=== PATIENT | female | born 1990 | race Two or more races ===

== ENCOUNTER 2024-07-31 18:54 | Emergency (ER) | payer MEDICAID, SELFPAY ==
[2024-07-31 19:37] VITALS: BP 118/76; PULSE 85; RESP 20; TEMP 36.9; O2SAT 98
--- NOTE | 2024-07-31 19:42 | PD.EDABDPN ---
ED Abdominal Pain RME/HPI General Chief Complaint: Abdominal Pain Stated complaint: ABD PAIN, CHEST PAIN, NAUSEA, DIZZINESS Time seen by provider: 07/31/24 19:36 Arrival date/time: 07/31/24 18:54 RME / HPI RME / HPI narrative: This section includes all my notes and documentations, including HPI, PE, and ED course. Uriel Mullins MD HPI: 34 y/o female presents with hot, burning epigastric abdominal pain, nausea x approximately 12 hours. Burning sensation moves up into her chest. Denies vomiting. No other complaints. ROS: All negative except as documented in HPI. Physical Exam: General: Alert and oriented. In obvious pain. Eyes: Conjunctivae and lids clear. ENT: No nasal congestion. Neck: Supple. Heart: RRR. Lungs: No respiratory distress. Good air movement. No rhonchi, wheezing, rales. Abdomen: Soft with moderate epigastric tenderness. Normal bowel sounds. No distension. No rebound or guarding. Back: No CVA tenderness. Skin: Warm and dry. Neuro: Alert and oriented X 3. I reviewed all diagnostic test results: My review of the US report is: NAD. Blood tests unremarkable. At this point, diagnoses include: Stomach ulcer Treatment here included: Pepcid, IV fluid, Toradol, Morphine, Zofran, Protonix. Significant improvement noted. Recommended more outpatient workup. Based on my best medical judgment, made decision no further evaluation or treatment indicated at this time. Patient understands and agrees to the discharge instructions customized and printed, see below. Discharge instructions from Dr. Mullins: ?After evaluation, your symptoms are due to stomach ulcer (see attached handout).? ?To help heal the ulcer, take Omeprazole 40 mg every morning and Famotidine 40 mg at bedtime for a week then as needed. ?Zofran for nausea/vomiting.? Clear liquid diet for 24 hours.? Then slowly advance diet as tolerated. ?Avoid food and beverages that can trigger and worsen ulcers.? See attached handout. --Tylenol with codeine for severe pain. ?See a private doctor on 08/02/2024 for recheck and further care. To make sure there is no serious intra-abdominal condition, ask for help with more investigation not available here in the ER.? Such as EGD or scoping the stomach, colonoscopy or scoping the colon, and referral to see bilingual legal assistant. Ask to review all test results and official radiology reports, to make sure you receive all necessary follow-ups and monitoring. ?Seek immediate medical care with worsening or with any concerns. Uriel Mullins MD Related Data Home Medications ?Medication ?Instructions ?Recorded ?Confirmed vit no.95-ferrous 1 tab PO DAILY 07/24/22 07/24/22 fumarate 28 mg-folic acid 800 mcg tablet () Previous Rx's ?Medication ?Instructions ?Recorded acetaminophen 300 mg-codeine 30 mg 2 tab PO Q8H PRN pain #20 tabs 07/31/24 tablet famotidine 40 mg tablet 40 mg PO .bedtime #30 tabs 07/31/24 omeprazole 40 mg capsule,delayed 40 mg PO QDAY #30 caps 07/31/24 release ondansetron 4 mg disintegrating 4 mg PO TID PRN nausea and 07/31/24 tablet vomiting 30 days #10 tabs Allergies Allergy/AdvReac Type Severity Reaction Status Date / Time mushroom Allergy Severe Swelling Verified 07/24/22 03:03 of Lip/Tongue/Throat Review of Systems Review of Systems Systems Reviewed: All systems reviewed, normal except as documented Past Medical History Past Medical History REPRODUCTIVE: Positive Previous Pregnancies MUSCULOSKELETAL: Positive Musculoskeletal Disorders HEMATOLOGIC: Positive Blood Disorders and Anemia (ectopic ) OTHER HISTORY: Positive Blood Transfusions Family History FAMILY HISTORY: Positive Family Cardiac Disorders ED Exam Narrative Physical exam: Refer to HPI above Course Quality Measures none Orders Category Date Time Status Saline [Insert IV] NOW Care 07/31/24 19:42 Completed US gall bladder Stat Exams 07/31/24 19:43 Completed Amylase Stat Lab 07/31/24 19:50 Results Bilirubin,Direct Stat Lab 07/31/24 19:50 Results CBC Stat Lab 07/31/24 19:50 Completed CMP [Comprehensive Metabolic Panel] Stat Lab 07/31/24 19:50 Results HCG,Qualitative Serum Stat Lab 07/31/24 19:50 Results Lipase Stat Lab 07/31/24 19:50 Results Magnesium Stat Lab 07/31/24 19:50 Results Famotidine Inj [Pepcid Inj] Med 07/31/24 19:43 Discontinued 20 mg IVP X1 ONE Ketorolac Inj [Toradol Inj] Med 07/31/24 19:42 Discontinued 30 mg IVP X1 ONE Morphine Inj Med 07/31/24 19:42 Discontinued 4 mg IVP X1 ONE Ondansetron Inj [Zofran Inj] Med 07/31/24 19:42 Discontinued 4 mg IVP X1 ONE Pantoprazole Inj [Protonix Inj] Med 07/31/24 19:43 Discontinued 40 mg IVP X1 ONE Sodium Chloride 0.9% 1000 ml [Ns] 1,000 ml Med 07/31/24 19:42 Discontinued IV 999 mls/hr Vital Signs Vital signs: Vital Signs Temperature 98.4 F 07/31/24 19:37 Pulse Rate 85 07/31/24 19:37 Respiratory Rate 20 07/31/24 19:37 Blood Pressure 118/76 07/31/24 19:37 Pulse Oximetry (%) 98 07/31/24 19:37 Oxygen Delivery Method Room Air 07/31/24 19:37 Abdominal Pain MDM MDM Narrative MDM Narrative:: Scribe Attestation: IAnnel, am scribing for and in the presence of Dr. Mullins. Provider Notation: Although this document has been carefully reviewed, there may still be some phonetic and other typographical errors.? These errors are purely grammatical due to imperfections in the software program and should not be construed in any way to? compromise the substance of the patient's medical care during this visit. 34 y/o female presents with hot, burning epigastric abdominal pain, nausea,l headache, and dizziness x approximately 12 hours. Burning sensation moves up her chest. Denies vomiting. Last oral intake was a PB&J for dinner. Patient experienced similar symptoms when she had appendicitis in 2021. No other complaints. Patient data External records reviewed:: [facility] previous records (Reviewed prior ED records from 09/22/21. Patient was seen for Near syncope.) Clinical information provided by:: patient Social determinants that could affect healthcare access:: none Patient has the following chronic illnesses:: None reported How is presenting disease/condition affected by chronic disease/condition?: no chronic disease Evaluation data The following diagnostics were reviewed and interpreted by me:: lab results and radiology exam(s) Lab and/or radiology exams considered but not ordered:: None Interpretation Summary: I reviewed all diagnostic test results: My review of the US report is: NAD. Blood tests unremarkable. Medications / Prescriptions Medications or Prescriptions considered but not ordered:: None Medication administrations:: Medication Administration History Discontinued Medications Famotidine (Famotidine Inj 10 Mg/Ml Vial 2 Ml) 20 mg IVP X1 ONE Stop: 07/31/24 19:44 Last Admin: 07/31/24 20:26 Dose: 20 mg Documented By: EF Sodium Chloride (Ns) 1,000 mls @ 999 mls/hr IV .Q1H1M ONE Stop: 07/31/24 20:42 Last Infusion: 07/31/24 21:03 Dose: Infused Documented By: Admin: 07/31/24 20:25 Dose: 999 mls/hr Documented By: EF Ketorolac Tromethamine (Ketorolac Inj 30 Mg/Ml Vial) 30 mg IVP X1 ONE Stop: 07/31/24 19:43 Morphine Sulfate (Morphine Sulf Inj 10 Mg/Ml Vial) 4 mg IVP X1 ONE Stop: 07/31/24 19:43 Last Admin: 07/31/24 20:26 Dose: 4 mg Documented By: EF Ondansetron HCl (Ondansetron Inj 2 Mg/Ml Inj 2 Ml) 4 mg IVP X1 ONE; Protocol Stop: 07/31/24 19:43 Last Admin: 07/31/24 20:26 Dose: 4 mg Documented By: EF Pantoprazole Sodium (Pantoprazole Inj 40 Mg Vial) 40 mg IVP X1 ONE Stop: 07/31/24 19:44 Last Admin: 07/31/24 20:26 Dose: 40 mg Documented By: EF Pepcid, IV fluid, Toradol, Morphine, Zofran, Protonix Consultations Consultation(s) initiated? (list below): No Diagnosis Differential diagnosis abdominal pain: abdominal pain, calculus of kidney, constipation, diverticulitis, pancreatitis, small bowel obstruction and other (GERD, Gastritis, PUD, biliary colic) Most likely diagnosis given after review of the tests above:: Stomach ulcer Admission Indicated Admission indicated?: not indicated Explain why admission is indicated or not indicated:: With significant improvement, there was no indication for admission. Admission Request Was there a request for admission?: No Disposition Plan Disposition Plan: Discharge Discharge Attestation Discharge Attestation: The patient and all family members were given an opportunity to ask questions and understood the discharge instructions. Discharge instructions specifically effects, indications for sooner follow up or return to the emergency department, and the expected course of current diagnosis. Patient condition: Stable Discharge Plan Plan Patient Disposition: HOME (Self Care) Prescriptions/Referrals Prescriptions/Med Rec: New famotidine 40 mg tablet 40 mg PO .bedtime Qty: 30 0RF acetaminophen-codeine 300-30 mg tablet 2 tab PO Q8H MDD 6 PRN (Reason: pain) Qty: 20 0RF omeprazole 40 mg capsule,delayed release(DR/EC) 40 mg PO QDAY Qty: 30 0RF ondansetron 4 mg tablet,disintegrating 4 mg PO TID PRN (Reason: nausea and vomiting) 30 Days Qty: 10 0RF No Action PNV cmb#95-ferrous fumarate-FA [] 28 mg iron- 800 mcg tablet 1 tab PO DAILY Patient Comments: TAKE 1 TABLET BY MOUTH EVERY DAY Referrals: Sai Sandoval MD [Primary Care Provider] - In 1 week Problem List Clinical Impression: Stomach ulcer Patient/Caregiver Discharge Instructions Discharge Activity: activity as tolerated Education Materials: ED PEPTIC ULCER vs GASTRITIS Additional Instructions: Discharge instructions from Dr. Mullins: ?After evaluation, your symptoms are due to stomach ulcer (see attached handout).? ?To help heal the ulcer, take Omeprazole 40 mg every morning and Famotidine 40 mg at bedtime for a week then as needed. ?Zofran for nausea/vomiting.? Clear liquid diet for 24 hours.? Then slowly advance diet as tolerated. ?Avoid food and beverages that can trigger and worsen ulcers.? See attached handout. --Tylenol with codeine for severe pain. ?See a private doctor on 08/02/2024 for recheck and further care. To make sure there is no serious intra-abdominal condition, ask for help with more investigation not available here in the ER.? Such as EGD or scoping the stomach, colonoscopy or scoping the colon, and referral to see bilingual legal assistant. Ask to review all test results and official radiology reports, to make sure you receive all necessary follow-ups and monitoring. ?Seek immediate medical care with worsening or with any concerns. Print Language: American Stand Alone Forms: Lisa Award Info., Patient Portal Info Letter
--- NOTE | 2024-07-31 19:43 | XR_ITS ---
Examination: Abdomen sonogram, Limited Date and time of exam: July hours INDICATIONS: Onset of abdominal pain beginning this morning Technique: Real-time sanabria scale transabdominal sonographic images of the upper abdomen obtained. Findings: Normal gallbladder. Normal common bile duct. Pancreatic head 2.5 cm. Liver 15.5 cm fatty infiltration no focal liver lesions Normal hepatopedal portal venous flow Patent IVC IMPRESSION: Normal gallbladder. Fatty liver
[2024-07-31 20:00] LABS: Basophils % (Auto) 0 % (0-2.5); Eosinophils # (Auto) 0.1 Thou/mm3 (0.0-0.5); Eosinophils % (Auto) 2 % (0-10); Hematocrit 36.3 % (36.0-46.0); Hemoglobin 12.6 g/dL (12.0-16.0); Immature Granulocytes % (Auto) 0 % (0-0); Immature Granulocytes Auto 0.01 Thou/mm3 (0.00-0.00); Lymphocytes # (Auto) 0.9 Thou/mm3 (1.0-4.8); Lymphocytes % (Auto) 17 % (10-50); Mean Corpuscular HGB Conc 34.7 g/dl (31.0-37.0); Mean Corpuscular Hemoglobin 26.1 pg (25.0-35.0); Mean Corpuscular Volume 75 fL (80-100); Monocytes # (Auto) 0.3 Thou/mm3 (0.0-0.8); Monocytes % (Auto) 6 % (0-12); Neutrophils % (Auto) 75 % (37-80); Nucleated Red Blood Cell % 0 /100 WBC (0); Platelet Count 248 Thou/mm3 (140-440); RDW Standard Deviation 39.7 fL (36.4-46.3); Red Blood Count 4.83 Miln/mm3 (4.00-5.20); White Blood Count 5.3 Thou/mm3 (3.6-11.0)
[2024-07-31] MEDS: SODIUM CHLORIDE 0.9% 1000 ML 1,000 ML 999 ML IV (20:25)
[2024-07-31] MEDS: MORPHINE SULF INJ 10 MG/ML VIAL 4 MG IVP (20:26)
[2024-07-31] MEDS: PANTOPRAZOLE INJ 40 MG VIAL IVP (20:26)
[2024-07-31] MEDS: FAMOTIDINE INJ 10 MG/ML VIAL 2 ML 20 MG IVP (20:26)
[2024-07-31] MEDS: ONDANSETRON INJ 2 MG/ML INJ 2 ML 4 MG IVP (20:26)
[2024-07-31 20:27] LABS: HCG,Qualitative Serum Negative
[2024-07-31 20:30] LABS: Alanine Aminotransferase 17 U/L (10-49); Albumin, Serum 4.9 gm/dL (3.5-5.0); Alkaline Phosphatase 56 U/L (46-116); Anion Gap 11 (7-16); BUN/Creatinine Ratio 10 Ratio (12-20); Bilirubin,Direct 0.2 mg/dL (0.0-0.3); Bilirubin,Total 0.6 mg/dL (0.3-1.2); Blood Urea Nitrogen 8 mg/dL (9-23); Calcium 9.6 mg/dL (8.3-10.6); Calcium (Corrected) 9.6 mg/dL (8.5-10.1); Carbon Dioxide 24.5 mMol/L (20.0-31.0); Chloride 100 mMol/L (98-107); Creatinine (Component) 0.8 mg/dL (0.6-1.3); Globulin 2.5 gm/dL (2.3-3.5); Glucose 99 mg/dL (74-106); Osmolality,Calculated 268 (275-295); Sodium 135 mMol/L (136-145); Total Protein 7.4 gm/dL (5.7-8.2); eGFR > 60 See Note
[2024-07-31 21:10] VITALS: BP 104/77; PULSE 77; RESP 16; O2SAT 100
[2024-07-31 21:41] LABS: Lipase 45 U/L (12-53)
[2024-07-31 21:53] LABS: Amylase 64 U/L (30-118)
== END 2024-07-31 21:11 | disposition home or self-care (01) ==
PROVIDERS: Emergency Provider Emergency Medicine; PCP Family Medicine
DX: K25.9 Gastric ulcer, unspecified as acute or chronic, without hemorrhage or perforation (principal)
CPT/HCPCS: 36415; 76705; 80053; 81001; 81025; 82150; 82248; 83690; 83735; 84703; 85025; 96361; 96374; 96375; 99284; J2270; J2405; J2470; J3490; J7030

== ENCOUNTER 2025-02-22 09:55 | Outpatient (AMB) | payer MEDICAID, SELFPAY ==
[2025-02-22 10:21] VITALS: BP 100/69; PULSE 79; RESP 18; TEMP 36.6; O2SAT 98; BMI 29.8
--- NOTE | 2025-02-22 10:22 | GYNCLNT_ITS ---
Vital Signs 02/22/25 10:21 02/22/25 10:24 Height 1.68 m Height Method Stated Weight 83.915 kg Weight Measurement Method Standing Scale BMI 29.8 BP 100/69 100/69 Blood Pressure Source Automatic Cuff Blood Pressure Location Right Upper Arm Position Sitting Respiration 18 18 Pulse 79 79 Pulse Source Monitor Temp 97.8 F 97.8 F Temp Source Temporal Artery Scan Pulse Oximetry (%) 98 98 Oxygen Delivery Method Room Air Allergies/Home Meds Allergies & Medications Allergies mushroom Allergy (Severe, Verified 02/22/25 10:22) Swelling of Lip/Tongue/Throat Medication Reconciliation segesterone acet 0.15 mg-ethinyl estradiol 0.013 mg/24 hr vaginal ring (Annovera) 1 vag ring vaginal .3 monthly #1 ea 02/22/25 [Rx] Intake Visit Data Collection New Patient or Established: Established Patient (seen at [facility] within 3 years) Reason for Visit:: REFEERRAL TUBAL LIGATION CONSULTATION Seen by Clinical Staff ONLY (RN/MA): No Criminal Justice Professor Required: No Do You Feel Safe at Home: Yes Authorities Contacted: N/A PCP or OBGYN visit in last 3 months: No Hx Now: No Are you currently on any form of Control: Yes Last menstrual period: 02/08/25 Pain Present Currently: No Pain Scale Used: Carter-Mccall/Numerical Pain scale:: 0 Smoking Status Smoking Status: Never smoker Immunizations Flu Vaccine in the Last 12 Months: No Flu Vaccine Exclusion Criteria: No Exclusion Criteria Stonemason Apprentice history Stonemason Apprentice History Menstrual regularity: irregular Flow: heavy Monthly: Yes How many days does period last: 10 Age at menarche: 13 Currently sexually active: Yes DATA ENTRY SPECIALIST: Past Medical History Past Medical History: No Hx Neurological Disorders, No Hx Cardiac Disorders, No Hx Cancer, Yes Hx Blood Disorders, Yes Hx Anemia, No Hx Gastrointestinal Disorders, No Hx Renal Disease, No Hx Diabetes Mellitus Type 1 and No Hx Diabetes Mellitus Type 2 Questionnaires Covid-19 Vaccine Questionnaire Has patient been vacinated for Covid-19 Have you been vacinated for Covid-19: No PHQ-9 PHQ-2 Over the last 2 weeks, how often have you been bothered by any of the following problems? 1. Little interest or pleasure in doing things: not at all 2. Feeling down, depressed, or hopeless: not at all Total score: 0 PHQ-9 3. Trouble falling or staying asleep, or sleeping too much: Not at all 4. Feeling tired or having little energy: Not at all 5. Poor appetite or overeating: Not at all 6. Feeling bad about yourself - or that you are a failure or have let yourself or your family down: Not at all 7. Trouble concentrating on things, such as reading the newspaper or watching television: Not at all 8. Moving or speaking so slowly that other people could have noticed? - Or the opposite - being so fidgety or restless that you have been moving around a lot more than usual: not at all 9. Thoughts that you would be better off or of hurting yourself in some way: Not at all Total score: 0 If you checked off any problems, how difficult have these problems made it for you to do your work, take care of things at home, or get along with other people?: not difficult at all Source: Developed by Drs. Monroe Culp, Sowmya Villarreal, Tho Bertrand and colleagues, with an educational ammon from [employer]. Depression screen completed yes Social History Living Situation History Marital Status: Lives With: Family Housing: Apartment Tobacco History Smoking Status: Never smoker Second Hand Smoke Exposure: No Alcohol History Alcohol Intake: Never Alcohol Intake Frequency: holidays/special occasions only Domestic Abuse History Do You Feel Safe at Home: Yes History of Present Illness HPI Narrative 35 years P4 with h/o prior ectopic and appendectomy and has a Copper IUD and has been on Zepbound and lost 31 lbs / she wants to have Bilateral tubal sterilization as IUD makes her bleed and she is tired of it / Patient given surgical risks of laparoscopic bilateral tubal removal and also options like Annovera, BCPills, nexplanon/ Depo Provera/ she is willing to try Annovera but would like to sign the tubal sterilization consent Review of Systems Review of Systems Systems Reviewed: All systems reviewed, normal except as documented Exam Narrative Physical exam: Alert and oriented x 3 no shortness of breath Pain no chest pain no palpitations Chest clear bilaterally no additional sounds, no wheezing no rales CVS regular rate and rhythm No CVAT Abdomen nontender, normal bowel sounds No guarding no rigidity No hernias Office Procedures [facility] LOC & Office Proc's Nursing/Assessment Patient Status: Established Patient OB Clinic Nursing Assessment: Medication Reconciliation, Update PMH in EMR and Vital Signs OB Clinic Coordination of Care: Complex Care and Chronic Disease 1-5, Education Complex Pt/Fam, Consent,records obtained, informed consent, Lab and Imaging orders, Results/Orders obtained and Staff clarify orders Special Needs: Heart tones Established Patient Charge Established Patient Point Assignment: 140 Established Patient Point Charge: EP Level 4 (120-155) Assessment & Plan Diagnosis / Problem List (1) Tubal ligation evaluation: Status: Acute (2) Consultation for female sterilization: Status: Acute Additional Assessment 35 years P4 with h/o prior ectopic and appendectomy and has a Copper IUD and has been on Zepbound and lost 31 lbs / she wants to have Bilateral tubal sterilization as IUD makes her bleed and she is tired of it / Patient given surgical risks of laparoscopic bilateral tubal removal and also options like Annovera, BCPills, nexplanon/ Depo Provera/ she is willing to try Annovera but would like to sign the tubal sterilization consent . She did sign it today . Request insurance authorization for the surgery and then if patient still wants to proceed will schedule the surgery which is laparoscopic bilateral tubal removal / possible open . R? B and options all discussed with the patient Patient can try the anoverra Ring with the Copper IUD in place
[2025-02-22 10:24] VITALS: BP 100/69; PULSE 79; RESP 18; TEMP 36.6; O2SAT 98
== END 2025-02-22 10:41 | disposition home or self-care (01) ==
LOC: HODSOBC 09:55
PROVIDERS: PCP Family Medicine; Referring Provider Family Medicine; Supervising Provider Obstetrics & Gynecology; Visit Provider Obstetrics & Gynecology
DX: Z30.2 Encounter for sterilization (principal); Z30.015 Encounter for initial prescription of vaginal ring hormonal contraceptive; Z97.5 Presence of (intrauterine) contraceptive device; Z87.59 Personal history of other complications of pregnancy, childbirth and the puerperium; Z90.49 Acquired absence of other specified parts of digestive tract; Z91.018 Allergy to other foods
CPT/HCPCS: 99214; G0463